=== PATIENT | female | born 1975 | race Caucasian/White ===

== ENCOUNTER 2017-11-17 15:47 | Emergency (ER) | payer OTHER ==
[2017-11-17] MEDS: ONDANSETRON (ODT) 4 MG TAB ODT (19:13)
[2017-11-17] MEDS: ACETAMINOPHEN 325 MG TAB PO (19:13)
[2017-11-17] MEDS: IBUPROFEN 200 MG TAB PO (19:13)
[2017-11-17 19:26] LABS: URINE BLOOD (Dip) POC 2+ (NEGATIVE); URINE GLUCOSE (Dip) POC Negative (NEGATIVE); URINE KETONES (Dip) POC Negative (NEGATIVE); URINE LEUKOCYTE EST (Dip) POC Negative (NEGATIVE); URINE NITRITE (Dip) POC Negative (NEGATIVE); URINE TOTAL PROTEIN POC Trace (NEGATIVE)
[2017-11-17 19:26] LABS: URINE PH (Dip) POC 5.5 (5.0-8.5)
== END 2017-11-17 21:31 | disposition home or self-care (01) ==
LOC: FTE 15:47
DX: G43.909 Migraine, unspecified, not intractable, without status migrainosus (principal)
CPT/HCPCS: 70450; 81003; 81025; 99284-25